=== PATIENT | female | born 1970 | race Caucasian/White ===

== ENCOUNTER 2019-03-29 08:34 | Day surgery (SDC) | payer OTHER ==
[2019-03-22 16:28] LABS: BASOPHILS # (AUTO) 0.1 X10'3 (0-0.2); BASOPHILS % (AUTO) 1.2 % (0-1); EOSINOPHILS # (AUTO) 0.2 X10'3 (0-0.9); LYMPHOCYTES # (AUTO) 3.5 X10'3 (1.1-4.8); MEAN CORPUSCULAR HEMOGLOBIN 32.5 PG (27.0-31.0); MEAN CORPUSCULAR HGB CONC 34.2 g/dL (33.0-36.5); MEAN CORPUSCULAR VOLUME 94.9 FL (78-98); MEAN PLATELET VOLUME 9.4 FL (7.4-10.4); MONOCYTES # (AUTO) 0.8 X10'3 (0-0.9); MONOCYTES % (AUTO) 7.5 % (2-12); NEUTROPHILS # (AUTO) 5.9 X10'3 (1.8-7.7); NEUTROPHILS % (AUTO) 56.3 % (42-75); PRE OP HEMATOCRIT 45.4 % (35.0-45.0); PRE OP HEMOGLOBIN 15.6 g/dL (12.0-16.0); PRE OP PLATELET COUNT 266 X10'3 (140-440); RED BLOOD COUNT 4.79 X10'6 (4.20-5.60); RED CELL DISTRIBUTION WIDTH 12.6 % (11.5-14.5)
[2019-03-22 16:45] LABS: ALBUMIN 3.5 G/DL (3.4-5.0); ALBUMIN/GLOBULIN RATIO 0.8 (1.1-1.5); ALKALINE PHOSPHATASE 115 IU/L (46-116); BLOOD UREA NITROGEN 8 MG/DL (7-18); CALCIUM 8.8 MG/DL (8.5-10.1); CHLORIDE 107 MMOL/L (99-107); CREATININE 0.73 MG/DL (0.40-0.90); PRE OP ANION GAP 7 (8-16); PRE OP AST 45 U/L (10-37); PRE OP BILIRUB, TOTAL 0.4 MG/DL (0.0-1.0); PRE OP GLUCOSE 81 MG/DL (70-104); PRE OP PARTIAL THROMB. TIME 29 SECONDS (22-32); PRE OP POTASSIUM 3.7 MMOL/L (3.4-5.1); PRE OP PROTIME 9.6 SECONDS (9.0-12.0); PRE OP SODIUM 142 MMOL/L (135-145); TOTAL CARBON DIOXIDE 27.7 MMOL/L (24-32); TOTAL PROTEIN 7.8 G/DL (6.4-8.2); eGFR 85 ML/MIN
[2019-03-22 16:48] LABS: PRE OP ALT 97 U/L (30-65)
[2019-03-22 16:53] LABS: PRE OP INR < 0.9 INR
[~2019-03-29] VITALS: Ht 165.1 cm; Wt 129.2 kg
[2019-03-29] VITALS (16 sets, daily range): BP systolic 93–135; BP diastolic 49–76
[~2019-03-29 08:34] MED LIST: CHOL10002 PO; CYAN-51 PO; GENTAMICIN IV ONE; IBUP-1984 PO; NORMAL SALINE IV ONE; clindamycin-Cleocin 900mg/D5W 50 ML IV ONE; famotidine 20mg tablet PO ONE; ringers solution, lacted 1,000 ML IV SCH
[2019-03-29] MEDS ORDERED: LIDOcaine 2% (20mg/ml) 5ml vial ONE (10:23)
[2019-03-29] MEDS ORDERED: rocuronium 10mg/ml inj IV ONE (10:23)
[2019-03-29] MEDS ORDERED: propofol inj 20 ML IV ONE (10:23)
[2019-03-29] MEDS ORDERED: normal saline 500ml IV soln 500 ML IV PRN (11:00)
[2019-03-29] MEDS ORDERED: diphenhydrAMINE 50 mg/ml inj IV PRN (11:00)
[2019-03-29] MEDS ORDERED: acetaminophen w/codeine (30MG) #3 tablet PO PRN (11:00)
[2019-03-29] MEDS ORDERED: temazepam 15mg capsule PO PRN (11:00)
[2019-03-29] MEDS ORDERED: clindamycin phosphate 40gm vag cream ONE (11:04)
[2019-03-29] MEDS ORDERED: vasoPRESSIN 20 units/ml inj. ONE (11:05)
[2019-03-29] MEDS ORDERED: LIDOcaine 1% 30ml preserv. free vial ONE (11:05)
[2019-03-29] MEDS ORDERED: BUPIVAcaine/PF 2.5 mg/ml (0.25%) 30ml vial ONE (11:05)
[2019-03-29] MEDS ORDERED: morphine 10mg/ml inj. ONE (11:05)
[2019-03-29] MEDS ORDERED: vancomycin 1,000mg inj ONE (11:06)
[2019-03-29] MEDS ORDERED: midazolam 2 mg/2 ml injection ONE (11:12)
[2019-03-29] MEDS ORDERED: fentaNYL /PF 50mcg/ml 5ml ampule ONE (11:13)
[2019-03-29] MEDS ORDERED: ringers solution, lacted 1,000 ML IV SCH (12:47)
[2019-03-29] MEDS ORDERED: ondansetron/PF 4mg/2ml inj IV PRN (12:50)
[2019-03-29] MEDS ORDERED: proCHLORperazine 10 MG/2 ml inj IV PRN (12:50)
[2019-03-29] MEDS ORDERED: meperidine/PF 25mg/ml syringe IV PRN ×3 (12:50)
[2019-03-29] MEDS ORDERED: morphine 4 MG/ML inj SYRINge IV PRN ×2 (12:50)
[2019-03-29] MEDS ORDERED: dexamethasone sod phosphate 4mg/ml inj. ONE (12:53)
[2019-03-29] MEDS ORDERED: ondansetron/PF 4mg/2ml inj ONE (12:53)
[2019-03-29] MEDS ORDERED: glycopyrrolate 0.2mg/ml inj ONE (12:53)
[2019-03-29] MEDS ORDERED: ePHEDrine 50MG/ML INJ. ONE (12:53)
[2019-03-29] MEDS ORDERED: neostigmine methylsulfate 1 MG/ML 10ml vial ONE (12:53)
[2019-03-29] MEDS ORDERED: albuterol 60 PUFF/8GM Inhaler IH ONE (12:56)
[2019-03-29] MEDS ORDERED: metoprolol tartrate 1mg/ml inj IV ONE (14:01)
[2019-03-29] MEDS ORDERED: meperidine/PF 50mg/ml syringe ONE (14:37)
--- NOTE | 2019-03-29 15:15 | NUR ---
ADMITTED TO PACU FROM OR ACCOMPANIED BY ANESTHESIA. INTIAL PHYSICAL ASSESSMENT DONE AND RECORDED. REPORT RECEIVED FROM ANESTHESIA.
[2019-03-29] MEDS: HYDROmorphone/NS 1 mg/ml CADD 50 ML IV SCH ×5 (15:40→23:00)
--- NOTE | 2019-03-29 16:30 | NUR ---
Patient to room 360 A, patient in no apparent distress and is comfortable at this time. Patient BLL, call light in reach, IS given to patient and teaching on how to use it was provided. CADD running.
--- NOTE | 2019-03-29 16:30 | NUR ---
PACU DISCHARGE CRITERIA MET, REPORT GIVEN TO FLOOR. DENIES PAIN OR DISCOMFORT, TRANSFERRED TO ROOM IN STABLE GOOD CONDITION.
[2019-03-29] MEDS: ringers solution, lacted 1,000 ML IV SCH ×2 (17:22→22:02)
--- NOTE | 2019-03-29 18:15 | NUR ---
Student documentation: I have reviewed and agree with all interventions, assessments performed and documented by Mayte Osborn.
--- NOTE | 2019-03-29 18:34 | NUR ---
Problems reprioritized. Patient report given, questions answered & plan of care reviewed with ANTONETTE Kennedy.
--- NOTE | 2019-03-29 18:54 | NUR ---
Patient in room [facility]. I have received report from ANTONETTE Thompson and had the opportunity to ask questions and assume patient care.
[2019-03-29] MEDS: ondansetron/PF 4mg/2ml inj IV PRN ×2 (20:35→22:16)
[2019-03-29] MEDS ORDERED: LORazepam 0.5 MG tablet PO PRN (21:10)
--- NOTE | 2019-03-29 21:41 | NUR ---
Pt up to walk. Began feeling nauseated and had a small amount of emesis and anxiety. Returned patient to bed. Will allow rest prior to making an attempt to walk.
[2019-03-29] MEDS: simethicone 80mg chew tab PO SCH (21:56)
[2019-03-29] MEDS: ketorolac trometh. 30mg/ml inj. IV PRN ×2 (21:58→23:51)
[2019-03-30] VITALS: BP 103/55
[2019-03-30] MEDS: HYDROmorphone/NS 1 mg/ml CADD 50 ML IV SCH ×4 (01:00→07:00)
[2019-03-30] MEDS: ondansetron/PF 4mg/2ml inj IV PRN (05:11)
[2019-03-30] MEDS: ringers solution, lacted 1,000 ML IV SCH (05:21)
[2019-03-30 05:51] LABS: BASOPHILS # (AUTO) 0.1 X10'3 (0-0.2); BASOPHILS % (AUTO) 0.3 % (0-1); EOSINOPHILS % (AUTO) 0 % (0-6); HEMATOCRIT 40.1 % (35.0-45.0); HEMOGLOBIN 13.8 g/dl (12.0-16.0); LYMPHOCYTES # (AUTO) 2.6 X10'3 (1.1-4.8); MEAN CORPUSCULAR HEMOGLOBIN 32.7 PG (27.0-31.0); MEAN CORPUSCULAR HGB CONC 34.3 g/dL (33.0-36.5); MEAN CORPUSCULAR VOLUME 95.4 FL (78-98); MONOCYTES % (AUTO) 5.3 % (2-12); NEUTROPHILS # (AUTO) 15.2 X10'3 (1.8-7.7); NEUTROPHILS % (AUTO) 80.4 % (42-75); PLATELET COUNT 290 X10'3 (140-440); RED CELL DISTRIBUTION WIDTH 12.7 % (11.5-14.5); WHITE BLOOD COUNT 18.9 X10'3 (4.5-11.0)
--- NOTE | 2019-03-30 06:59 | NUR ---
Problems reprioritized. Patient report given, questions answered & plan of care reviewed with ANTONETTE Farias.
[2019-03-30 07:00] VITALS: BP 136/53
--- NOTE | 2019-03-30 07:00 | NUR ---
Patient in room [facility]. I have received report from ANTONETTE Thompson and had the opportunity to ask questions and assume patient care.
[2019-03-30] MEDS: simethicone 80mg chew tab PO SCH ×2 (08:57→13:09)
[2019-03-30] MEDS ORDERED: CADD PCA waste documentation MC PRN (09:35)
[2019-03-30 11:30] VITALS: BP 130/65
[2019-03-30] MEDS: acetaminophen w/codeine (30MG) #3 tablet PO PRN ×2 (11:39→16:29)
--- NOTE | 2019-03-30 17:30 | NUR ---
DC inst provided to pt. IV DC'd, tip intact. All belongings sent w/pt. WC to front lobby.
== END 2019-03-30 17:29 | disposition home or self-care (01) ==
LOC: PAS 08:34 → SUR 3N 10:56 → PAS 03-30 17:29
PROVIDERS: ATTEND Specialist
DX: N81.4 Uterovaginal prolapse, unspecified (principal); N81.89 Other female genital prolapse; D25.1 Intramural leiomyoma of uterus; N39.3 Stress incontinence (female) (male); N73.6 Female pelvic peritoneal adhesions (postinfective); L91.8 Other hypertrophic disorders of the skin; Z79.01 Long term (current) use of anticoagulants; Z79.899 Other long term (current) drug therapy; Z88.0 Allergy status to penicillin; Z88.1 Allergy status to other antibiotic agents; Z88.2 Allergy status to sulfonamides
CPT/HCPCS: 11200; 36415; 57240; 57283; 57288; 58552; 80053; 82948; 85025; 85610; 85730; 86885; 86900; 86901; C1771; J1100; J1170; J1580; J1885; J2001; J2175; J2250; J2270; J2405; J2704; J2710; J3010; J3370; J3490; J7030; J7120; A4215; A4314; A4338; A4355; A4618; A6250; A7000; G0378